=== PATIENT | male | born 1970 | race Caucasian/White ===

== ENCOUNTER 2020-06-15 08:52 | Outpatient (CLI) | payer OTHER, SELFPAY ==
[2020-06-15 09:12] LABS: Basophils Absolute Auto 0.1 K/mm3 (0.0-0.1); Basophils Percent Auto 0.7 % (0.2-1.2); Eosinophils Absolute Auto 0.5 K/mm3 (0-0.3); Eosinophils Percent Auto 6.8 % (0-4.4); Hematocrit 39.7 % (42.0-52.0); Hemoglobin 13.9 g/dL (14.0-18.0); Immature Granulocyte Absolute 0.03 K/mm3 (0.00-0.031); Immature Granulocyte Percent A 0.4 % (0-0.5); Lymphocytes Absolute Auto 1.17 K/mm3 (0.9-3.2); Lymphocytes Percent Auto 16.2 % (18.3-44.2); Mean Corpuscular Hemoglobin 31.7 pg (26-34); Mean Corpuscular Volume 90.6 fl (80-100); Monocytes Absolute Auto 0.6 K/mm3 (0.1-0.6); Monocytes Percent Auto 7.9 % (2.6-8.5); Neutrophils Absolute Auto 4.9 K/mm3 (1.3-6.7); Platelet Count Result 198 k/mm3 (150-375); Red Blood Count 4.38 M/mm3 (4.6-6.20); Red Cell Distribution Width 11.7 % (11.5-14.5); White Blood Count 7.2 K/mm3 (4.5-10.0)
[2020-06-15 09:25] LABS: Alanine Aminotransferase 37 U/L (4-50); Albumin Level 4.1 g/dL (3.5-5.1); Alkaline Phosphatase 65 U/L (38-126); Anion Gap 6 mmol/L (8-16); Aspartate Amino Transferase 37 U/L (17-59); Bilirubin,Total 0.5 mg/dL (0.2-1.3); Blood Urea Nitrogen 19 mg/dL (9-20); Calcium 9.2 mg/dL (8.4-10.2); Carbon Dioxide 27 mmol/L (22-30); Chloride 102 mmol/L (98-107); Cholesterol 313 mg/dL (0-200); Estimated Glomerular Filt Rate > 60; Glucose 107 mg/dL (75-110); HDL Direct 58 mg/dL; Potassium 4.2 mmol/L (3.4-5.0); Sodium 135 mmol/L (137-145); Triglycerides 444 mg/dL (<150)
[2020-06-15 09:36] LABS: LDL Cholesterol Direct 156 mg/dL
== END 2020-06-15 08:53 | disposition home or self-care (01) ==
PROVIDERS: PCP Internal Medicine; Visit Provider Nurse Practitioner
DX: Z13.220 Encounter for screening for lipoid disorders (principal); Z13.228 Encounter for screening for other metabolic disorders; I10 Essential (primary) hypertension
CPT/HCPCS: 36415; 80053; 80061; 85025

== ENCOUNTER 2020-07-04 20:07 | Emergency (ER) | payer OTHER, SELFPAY ==
--- NOTE | ~2020-07-04 | XR_ITS ---
EXAMINATION: XR chest 1V portable INDICATION: Cough and fever TECHNIQUE: Portable AP chest at 2102 hours COMPARISON: None available FINDINGS: Patchy bibasilar airspace opacities are present. There is no pleural effusion or pneumothor ax. The cardiomediastinal silhouette is normal. IMPRESSION: 1. Patchy bibasilar airspace opacities, consistent with atelectasis versus pneumonia. Reviewed, dictated and finalized at location A. LA TENDER HELPER IMPRESSION: 1. Patchy bibasilar airspace opacities, consistent with atelectasis versus pneu monia.
[2020-07-04 20:15] VITALS: BP 140/81; PULSE 113; RESP 18; TEMP 38.8; O2SAT 95
--- NOTE | 2020-07-04 21:42 | ED.FEVER ---
HPI - Fever General Chief Complaint: Fever Stated Complaint: Fever-shortness of breath Time Seen by Provider: 07/04/20 20:45 History of Present Illness HPI Narrative: Patient is a 49-year-old gentleman who presents the emergency department with chief complaint of fever chills body aches and cough. Patient reports that symptoms started today states it hit him all of a sudden. The patient states that he has history of asthma and has felt as though he has had a little bit more wheezing than normal. The patient states that he is unsure if he had any Covid exposure but has been wearing a mask. Patient has not been previously tested for Covid. Related Data Home Medications Medication Instructions Recorded Confirmed amlodipine 10 mg PO DAILY 07/04/20 Allergies Allergy/AdvReac Type Severity Reaction Status Date / Time No Known Allergies Allergy Unverified 07/04/20 20:09 Review of Systems Review of Systems: Narrative: A 10 system review of systems was completed on the patient and is negative except for what is stated in the HPI. Nursing and ancillary documentation was reviewed. PMFSH Past Medical History Medical History Anxiety and depression Asthma Body mass index (bmi) 31.0-31.9, adult Chronic fatigue Class 1 obesity without serious comorbidity with body mass index (BMI) of 30.0 to 30.9 in adult Depression Essential hypertension Gastroesophageal reflux disease Hypertension Hypogonadism in male Low testosterone Surgical History Surgical History H/O shoulder surgery left Family History Family History Father Family history of cardiovascular disease Sibling Family history of cardiovascular disease Sibling Cancer Social History Social History Smoking status: Light tobacco smoker Tobacco type: cigarettes Alcohol intake: current Exam Narrative: Exam Narrative: GENERAL: Well-appearing, well-nourished, and in no acute distress. HEAD: Normocephalic, atraumatic. EYES: PERRLA and EOMI. ENT: Nares clear, no rhinorrhea or epistaxis. Mucous membranes moist. NECK: Supple. CHEST: Clear to auscultation. No respiratory distress. HEART: Regular rate and rhythm. No murmur heard. Normal peripheral pulses. ABDOMEN: Soft, nontender, nondistended, normal active bowel sounds. EXTREMITIES: Normal range of motion. No edema. SKIN: Warm, dry, no rash. NEURO: No focal deficits. Alert and oriented x3. PSYCH: Normal mood and affect. Course Course Emergency Course: Chest x-ray shows possible infiltrates that are either atelectasis versus pneumonia. The patient's influenza was negative the patient will be started on oral antibiotics until his Covid test comes back. Vital Signs Vital signs: Vital Signs Temperature 38.8 C H 07/04/20 20:15 Pulse Rate 113 H 07/04/20 20:15 Respiratory Rate 18 07/04/20 20:15 Blood Pressure 140/81 07/04/20 20:15 Pulse Oximetry 95 07/04/20 20:15 Temperature 38.8 C H 07/04/20 20:15 Pulse Rate 113 H 07/04/20 20:15 Respiratory Rate 18 07/04/20 20:15 Blood Pressure 140/81 07/04/20 20:15 Pulse Oximetry 95 07/04/20 20:15 MDM - Fever Lab Data Labs: Lab Results 07/04/20 Range/Units 20:58 SARS-CoV-2 RNA (RT-PCR) Pending Influenza A Screen Negative Reference Range: Negative Influenza B Screen Negative Reference Range: Negative Discharge Plan Discharge Clinical Impression: Acute viral syndrome Pneumonia Qualifiers: Pneumonia type: due to unspecified organism Laterality: unspecified laterality Lung location: unspecified part of lung Qualified Code(s): J18.9 - Pneum
[2020-07-04 21:59] VITALS: BP 137/82; PULSE 87; RESP 20; O2SAT 99
[2020-07-05 17:56] LABS: SARS-CoV-2 RNA PCR Positive
== END 2020-07-04 22:02 | disposition home or self-care (01) ==
PROVIDERS: Emergency Provider Emergency Medicine; PCP Internal Medicine
DX: U07.1 COVID-19 (principal); J12.89 Other viral pneumonia; F41.9 Anxiety disorder, unspecified; F32.9 Major depressive disorder, single episode, unspecified; I10 Essential (primary) hypertension; K21.9 Gastro-esophageal reflux disease without esophagitis
CPT/HCPCS: 71045; 87635; 87804; 99283; C9803; U0003

== ENCOUNTER → 2021-03-05 09:45 | Outpatient (CLI) | payer OTHER, SELFPAY ==
[2021-03-05 19:54] LABS: SARS-CoV-2 RNA PCR Negative
== END ==
PROVIDERS: PCP Internal Medicine; Visit Provider Nurse Practitioner
DX: R05 Cough (principal); Z20.822 Contact with and (suspected) exposure to COVID-19
CPT/HCPCS: C9803; U0003; U0005

== ENCOUNTER 2021-05-17 08:16 | Outpatient (CLI) | payer OTHER, SELFPAY ==
--- NOTE | ~2021-05-17 | XR_ITS ---
EXAMINATION: XR lumbar spine 2-3V DATE: 05/17/2021 10:40 INDICATION: Low back pain TECHNIQUE: Anteroposterior and lateral views of the lumbar spine, and cone-down lateral view of the l umbosacral junction were obtained. COMPARISON: None. FINDINGS: There are 5 mm of retrolisthesis of L5 on S1. Bone alignment is otherwise normal. There is no fracture. There is moderate loss of intervertebral disc space height at L4-5. Small degenerative o steophytes project from the anterior endplates of multiple vertebral bodies. Calcified atherosclerosi s is noted. IMPRESSION: 1. Mild/moderate lumbar spondylosis without acute findings. Reviewed, dictated and finalized at location B. APPLYING MACHINE TENDER
[2021-05-17 08:39] LABS: Basophils Percent Auto 0.4 % (0.2-1.2); Eosinophils Percent Auto 0.3 % (0-4.4); Hematocrit 40.5 % (42.0-52.0); Immature Granulocyte Absolute 0.08 K/mm3 (0.00-0.031); Immature Granulocyte Percent A 0.7 % (0-0.5); Lymphocytes Absolute Auto 1.03 K/mm3 (0.9-3.2); Lymphocytes Percent Auto 9.4 % (18.3-44.2); Mean Corpuscular HGB Conc 34.6 g/dl (32-36); Mean Corpuscular Hemoglobin 31.5 pg (26-34); Mean Platelet Volume 9.6 fl (7.4-10.4); Monocytes Absolute Auto 0.6 K/mm3 (0.1-0.6); Monocytes Percent Auto 5.3 % (2.6-8.5); Neutrophils Absolute Auto 9.2 K/mm3 (1.3-6.7); Neutrophils Percent Auto 83.9 % (45.5-73.1); Platelet Count Result 248 k/mm3 (150-375); Red Blood Count 4.45 M/mm3 (4.6-6.20); Red Cell Distribution Width 11.5 % (11.5-14.5); White Blood Count 10.9 K/mm3 (4.5-10.0)
[2021-05-17 08:50] LABS: Alanine Aminotransferase 40 U/L (4-50); Albumin Level 4.8 g/dL (3.5-5.1); Alkaline Phosphatase 59 U/L (38-126); Anion Gap 11 mmol/L (8-16); Aspartate Amino Transferase 36 U/L (17-59); Bilirubin,Total 0.4 mg/dL (0.2-1.3); Blood Urea Nitrogen 18 mg/dL (9-20); Carbon Dioxide 26 mmol/L (22-30); Chloride 100 mmol/L (98-107); Cholesterol 242 mg/dL (0-200); Estimated Glomerular Filt Rate > 60; Glucose 125 mg/dL (65-110); HDL Direct 78 mg/dL; Potassium 4.4 mmol/L (3.4-5.0); Sodium 137 mmol/L (137-145); Triglycerides 149 mg/dL (<150)
[2021-05-17 09:02] LABS: LDL Cholesterol Direct 118 mg/dL
[2021-05-17 09:22] LABS: Prostate Specific Antigen 0.8 ng/mL (< OR = 4.0)
== END 2021-05-17 08:17 | disposition home or self-care (01) ==
LOC: ANHLAB 08:18
PROVIDERS: PCP Internal Medicine; Visit Provider Clinical Nurse Specialist
DX: Z12.5 Encounter for screening for malignant neoplasm of prostate (principal); M47.816 Spondylosis without myelopathy or radiculopathy, lumbar region; D64.9 Anemia, unspecified; I10 Essential (primary) hypertension; E78.2 Mixed hyperlipidemia
CPT/HCPCS: 36415; 72100; 80053; 80061; 84153; 84443; 85025; G0103

== ENCOUNTER 2021-05-24 08:02 | Outpatient (CLI) | payer OTHER, SELFPAY ==
--- NOTE | ~2021-05-24 | CT_ITS ---
EXAMINATION: CT abdomen pelvis w con DATE: 05/24/2021 08:41 INDICATION: Lower abdominal intermittent pain after urination for one year. Blood in stool. TECHNIQUE: Computed tomography (CT) of the abdomen and pelvis was performed with 100 cc Omnipaque 350 intravenous contrast. Automated exposure control and iterative reconstruction technique were employe d. Exam dose: 744.96 mGy-cm total exam DLP. COMPARISON: None. FINDINGS: The lung bases are clear. Normal heart size. No pericardial or pleural effusion. The liver, gallbladder, bile ducts, spleen, pancreas, pancreatic duct, and adrenal glands and kidneys appear normal. No urinary tract calculus or hydroureteronephrosis. There is moderate thickening of the urinary bladder wall; this may be due to moderate prostate enlarg ement. Cystitis is not excluded. There are prostate calcifications. There is atherosclerotic calcification of the abdominal aorta but no aneurysm. No intraperitoneal or retroperitoneal or pelvic mass lesion or adenopathy or ascites. Normal appendix. No bowel obstruction, bowel wall thickening, pneumatosis or intraperitoneal free air . Prominent degenerative spurring of the lower thoracic spine. Moderate degenerative disc disease at L4-5. No suspicious osteolytic or osteoblastic lesions are note d. Bilateral hip osteoarthritis. IMPRESSION: Prostate enlargement and calcification and associated moderate thickening of the urinary bladder wall; cystitis is not excluded Normal appendix Reviewed, dictated and finalized at Location A. Reviewed, dictated and finalized at location A. RESSION MOLDING MACHINE TENDER IMPRESSION: Prostate enlargement and calcification and associated moderate thi ckening of the urinary bladder wall; cystitis is not excluded Normal appendix
== END 2021-05-24 08:03 | disposition home or self-care (01) ==
PROVIDERS: PCP Internal Medicine; Visit Provider Clinical Nurse Specialist
DX: R10.9 Unspecified abdominal pain (principal); N40.0 Benign prostatic hyperplasia without lower urinary tract symptoms; R93.89 Abnormal findings on diagnostic imaging of other specified body structures
CPT/HCPCS: 74177; Q9967

== ENCOUNTER 2021-07-05 11:32 | Outpatient (CLI) | payer OTHER, SELFPAY ==
[2021-07-05 11:57] LABS: Basophils Absolute Auto 0.1 K/mm3 (0.0-0.1); Basophils Percent Auto 0.9 % (0.2-1.2); Eosinophils Absolute Auto 0.3 K/mm3 (0-0.3); Eosinophils Percent Auto 4.2 % (0-4.4); Hematocrit 40.5 % (42.0-52.0); Hemoglobin 14.1 g/dL (14.0-18.0); Immature Granulocyte Absolute 0.02 K/mm3 (0.00-0.031); Immature Granulocyte Percent A 0.3 % (0-0.5); Lymphocytes Percent Auto 19.2 % (18.3-44.2); Mean Corpuscular HGB Conc 34.8 g/dl (32-36); Mean Platelet Volume 9.3 fl (7.4-10.4); Monocytes Absolute Auto 0.6 K/mm3 (0.1-0.6); Monocytes Percent Auto 8.2 % (2.6-8.5); Neutrophils Absolute Auto 5.2 K/mm3 (1.3-6.7); Neutrophils Percent Auto 67.2 % (45.5-73.1); Platelet Count Result 244 k/mm3 (150-375); Red Cell Distribution Width 12.3 % (11.5-14.5); White Blood Count 7.8 K/mm3 (4.5-10.0)
[2021-07-05 12:04] LABS: Hemoglobin A1C 5.1 % (<5.7)
== END 2021-07-05 11:33 | disposition home or self-care (01) ==
LOC: ANHLAB 11:33
PROVIDERS: PCP Internal Medicine; Visit Provider Clinical Nurse Specialist
DX: D72.829 Elevated white blood cell count, unspecified (principal); R73.09 Other abnormal glucose
CPT/HCPCS: 36415; 83036; 85025

== ENCOUNTER 2021-07-19 00:04 | Day surgery (SDC) | payer OTHER, SELFPAY ==
[2021-07-03 14:40] VITALS: BMI 29.6
--- NOTE | 2021-07-19 07:00 | WPDANESEPPF ---
Anes - Initial Pre Proc Eval Procedure: Operation Date: 07/19/21 10:00 Proposed Procedures p Colonoscopy - Kyrie Mujica MD Date/Time: 07/19/21 07:00 Surgeon: Kyrie Mujica MD Pre Op Diagnosis: melena Patient Data Age: 51 Gender: M Height: 1.75 m Weight: 91 kg Allergies Allergy/AdvReac Type Severity Reaction Status Date / Time No Known Allergies Allergy Verified 07/19/21 08:53 Home Medications Medication Instructions Recorded Confirmed Type atorvastatin 10 mg tablet 10 mg PO DAILY #90 tablet 07/24/20 07/19/21 Rx omeprazole 40 mg capsule,delayed 40 mg PO DAILY #90 cap 12/10/20 07/19/21 Rx release albuterol sulfate 90 mcg/actuation 2 puff INHALATION Q4-6H PRN #18 g 12/17/20 07/19/21 Rx aerosol inhaler amlodipine 10 mg tablet 10 mg PO DAILY #90 tablet 03/12/21 07/19/21 Rx lisinopril 40 mg tablet 40 mg PO DAILY #90 tablet 04/25/21 07/19/21 Rx azelastine 137 mcg (0.1 %) nasal 137 mcg INTRANASAL Q12H #30 ml 05/15/21 07/19/21 Rx spray aerosol fluticasone propionate 50 1 spray INTRANASAL Q12H #16 g 05/15/21 07/19/21 Rx mcg/actuation nasal spray,suspension hydrochlorothiazide 12.5 mg tablet 12.5 mg PO DAILY #90 tablet 06/12/21 07/19/21 Rx sertraline 100 mg tablet 150 mg PO DAILY #135 tablet 06/12/21 07/19/21 Rx Patient hx anesthesia problems: none Family hx anesthesia problems: none Results Review: All pre-operative results and documents have been reviewed as part of the pre-operative evaluation. [facility] Past Medical History Medical History Anxiety and depression Asthma Body mass index (bmi) 31.0-31.9, adult Chronic fatigue Class 1 obesity without serious comorbidity with body mass index (BMI) of 30.0 to 30.9 in adult Depression Essential hypertension Gastroesophageal reflux disease Hyperlipidemia Hypertension Hypogonadism in male Low testosterone SHAYNA (obstructive sleep apnea) Surgical History Surgical History H/O shoulder surgery left Family History Family History Father Family history of cardiovascular disease Sibling Family history of cardiovascular disease Sibling Cancer Social History Social History Smoking status: Former smoker Tobacco type: cigars Alcohol intake: current Drinks per week: 10 Alcohol use details: Pt drinks socially. Substance use: never Substance use type: does not use Living arrangements: with family Spiritual care concerns: No Anes - Eval Final PreProcedure Day of Procedure 07/19/21 07:00 Patient weight: overweight Heart: regular rate and rhythm Lungs: clear to auscultation and normal air movement Airway: Mallampati scale class II Neurological: alert and oriented Last oral intake: >/= 8 hours ASA classification: III Emergent: no Anesthetic plan: proceed Anesthesia type and monitoring: general GIVS and standard monitoring Results Review: All pre-operative results and documents have been reviewed as part of the pre-operative evaluation. Informed Consent: The patient's anesthetic plan and its attendant risks and benefits were discussed with the patient/family/POA. Questions were solicited and answers provided to the satisfaction of the patient/family/POA.
[2021-07-19] MEDS: LACTATED RINGERS 1,000 ML 150 ML IV CONT (09:01)
[2021-07-19 09:02] VITALS: BP 152/103; PULSE 97; RESP 17; TEMP 36.3; O2SAT 97; BMI 29.2
--- NOTE | 2021-07-19 09:21 | PM.HPGS ---
History of Present Illness History of Present Illness Consent: Risks, benefits, and alternatives have been discussed and questions answered. Patient agrees to proceed with procedure. Chief complaint: melena Narrative: Peña Anderson is a 51 year old male with intermittent rectal bleeding and colon polyp 2015 Review of Systems Constitutional: Constitutional: Denies headache(s) and Denies weakness Eyes: Eyes: Denies blurry vision ENT: Reports Normal hearing present, Denies headache(s) and Denies neck pain Cardiovascular: Cardiovascular: Denies chest pain and Denies dyspnea Respiratory: Respiratory: Denies dyspnea Gastrointestinal: Gastrointestinal: Reports no additional gastrointestinal complaints Genitourinary: Genitourinary: Denies dysuria Musculoskeletal: Musculoskeletal: Denies neck pain Integumentary/Breasts: Skin/Breast: Denies dry skin Neurologic: Reports Normal hearing present, Denies headache(s) and Denies weakness Psychiatric: Psychiatric: Denies anxiety Endocrine: Endocrine: Denies change in body appearance Hematologic/Lymphatic: Hematologic/Lymphatic: Denies easy bleeding Allergic/Immunologic: Allergic/Immunologic: Denies urticaria PMFSH Past Medical History Medical History (Updated 07/19/21 @ 09:21 by Kyrie Mujica MD) Anxiety and depression Asthma Blood in stool Body mass index (bmi) 31.0-31.9, adult Chronic fatigue Class 1 obesity without serious comorbidity with body mass index (BMI) of 30.0 to 30.9 in adult Depression Essential hypertension Gastroesophageal reflux disease Hyperlipidemia Hypertension Hypogonadism in male Low testosterone SHAYNA (obstructive sleep apnea) Surgical History Surgical History H/O shoulder surgery left Family History Family History Father Family history of cardiovascular disease Sibling Family history of cardiovascular disease Sibling Cancer Social History Social History Smoking status: Former smoker Tobacco type: cigars Alcohol intake: current Drinks per week: 10 Alcohol use details: Pt drinks socially. Substance use: never Substance use type: does not use Living arrangements: with family Spiritual care concerns: No Meds Home Medications and Allergies Home Medications Medication Instructions Recorded Confirmed Type atorvastatin 10 mg tablet 10 mg PO DAILY #90 tablet 07/24/20 07/19/21 Rx omeprazole 40 mg capsule,delayed 40 mg PO DAILY #90 cap 12/10/20 07/19/21 Rx release albuterol sulfate 90 mcg/actuation 2 puff INHALATION Q4-6H PRN #18 g 12/17/20 07/19/21 Rx aerosol inhaler amlodipine 10 mg tablet 10 mg PO DAILY #90 tablet 03/12/21 07/19/21 Rx lisinopril 40 mg tablet 40 mg PO DAILY #90 tablet 04/25/21 07/19/21 Rx azelastine 137 mcg (0.1 %) nasal 137 mcg INTRANASAL Q12H #30 ml 05/15/21 07/19/21 Rx spray aerosol fluticasone propionate 50 1 spray INTRANASAL Q12H #16 g 05/15/21 07/19/21 Rx mcg/actuation nasal spray,suspension hydrochlorothiazide 12.5 mg tablet 12.5 mg PO DAILY #90 tablet 06/12/21 07/19/21 Rx sertraline 100 mg tablet 150 mg PO DAILY #135 tablet 06/12/21 07/19/21 Rx Allergies Allergy/AdvReac Type Severity Reaction Status Date / Time No Known Allergies Allergy Verified 07/19/21 08:53 Vital Signs Vital Signs - 24 hr 07/19/21 09:02 Temperature 97.3 F L Pulse Rate 97 Respiratory Rate 17 Blood Pressure 152/103 H Pulse Oximetry 97 Exam Const: General: comfortable and no acute distress HENMT: General nose exam: Normal nares present Eyes: General: appearance normal, both eyes and all related structures Neck: Neck: no JVD Resp: Auscultation: clear to auscultation bilaterally Cardio: Rate: regular rate Rhythm: regular rhythm GI: Inspection: non-distended GI Palp: Yes Soft to pa
[2021-07-19 09:46] VITALS: BP 114/86; PULSE 87; RESP 16; O2SAT 99
[2021-07-19 09:56] VITALS: BP 143/103; PULSE 82; RESP 16; O2SAT 100
[2021-07-19 10:06] VITALS: BP 152/106; PULSE 76; RESP 18; O2SAT 100
== END 2021-07-19 10:18 | disposition home or self-care (01) ==
PROVIDERS: PCP Internal Medicine; Visit Provider Internal Medicine Gastroenterology
PROC: 0DJD8ZZ Inspection of Lower Intestinal Tract, Via Natural or Artificial Opening Endoscopic (ICD-10-PCS; CPT 45378; principal; 2021-07-19 10:00)
DX: K92.1 Melena (principal); D12.3 Benign neoplasm of transverse colon; K64.8 Other hemorrhoids; F41.8 Other specified anxiety disorders; I10 Essential (primary) hypertension; K21.9 Gastro-esophageal reflux disease without esophagitis; G47.33 Obstructive sleep apnea (adult) (pediatric); E78.5 Hyperlipidemia, unspecified; Z87.891 Personal history of nicotine dependence; Z79.51 Long term (current) use of inhaled steroids
CPT/HCPCS: 45380; 88305; J2704; J7120

== ENCOUNTER 2021-08-12 15:08 | Emergency (ER) | payer OTHER, SELFPAY ==
--- NOTE | ~2021-08-12 | XR_ITS ---
EXAMINATION: XR shoulder RT min 2V EXAM DATE: 08/12/2021 15:36 INDICATION: Fell Backwards On Object 08/11/21. LROM Since. TECHNIQUE: The following right shoulder projections obtained: frontal projection with internal rotati on, frontal projection with external rotation, Grashey, and scapular Y view (4+ views). There is no prior study for comparison. 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 Mild to moderate right shoulder oste oarthritis. There are no acute fractures or dislocations identified. There is no subcutaneous gas. The soft tissue is unremarkable. There are no radiopaque foreign bodies. 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 Mild to moderate osteoarthritis. Reviewed, dictated and finalized at location B. 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 Mild to moder ate osteoarthritis.
[2021-08-12 15:14] VITALS: BP 150/85; PULSE 100; RESP 20; TEMP 37.3; O2SAT 98
[2021-08-12 15:22] VITALS: BP 150/85; PULSE 100; RESP 20; TEMP 37.3; O2SAT 98
--- NOTE | 2021-08-12 15:30 | ED.UPPEXIN ---
HPI - Extremity Injury (Upper) General Chief Complaint: Extremity Injury, Upper Stated Complaint: Fall Injury/Right Shoulder History of Present Illness HPI narrative: patinela presents with right shoulder pain. patient states he fell last night landing on a rock. today he has pain with movementto shoulder. no deformity. no open areas noted. patient took ibuprofen prior to arrival. MD complaint: injury to: right and shoulder Related Data Allergies Allergy/AdvReac Type Severity Reaction Status Date / Time No Known Allergies Allergy Verified 07/19/21 08:53 Review of Systems Review of Systems: CONSTITUTIONAL: Denies fever, chills, or sweats. EYES: Denies visual changes, redness, or discharge. ENT: Denies rhinorrhea, congestion, sore throat, or otalgia. CARDIOVASCULAR: Denies chest pain, palpitations, or edema. RESPIRATORY: Denies cough or dyspnea. GASTROINTESTINAL: Denies abdominal pain, nausea, vomiting, or diarrhea. GENITOURINARY: Denies dysuria or hematuria. SKIN: Denies rash or itching. MUSCULOSKELETAL: Denies back pain, joint pain, or myalgia. NEUROLOGIC: Denies headache, numbness, or weakness. PSYCHIATRIC: Denies anxiety or depression. [facility] Past Medical History Medical History (Updated 08/12/21 @ 16:01 by ANETTE Obrien) Anxiety and depression Asthma Blood in stool Body mass index (bmi) 31.0-31.9, adult Chronic fatigue Class 1 obesity without serious comorbidity with body mass index (BMI) of 30.0 to 30.9 in adult Depression Essential hypertension Gastroesophageal reflux disease Hyperlipidemia Hypertension Hypogonadism in male Low testosterone SHAYNA (obstructive sleep apnea) Surgical History Surgical History H/O shoulder surgery left Family History Family History Father Family history of cardiovascular disease Sibling Family history of cardiovascular disease Sibling Cancer Social History Social History Smoking status: Former smoker Tobacco type: cigars Alcohol intake: current Drinks per week: 10 Alcohol use details: Pt drinks socially. Substance use: never Substance use type: does not use Spiritual care concerns: No Comments At time of signature, agree with nursing past medical, surgical, social and family history. There is no relevant family history pertinent to the presenting complaint Exam Narrative: GENERAL: Well-appearing, well-nourished, and in no acute distress. HEAD: Normocephalic, atraumatic. EYES: PERRLA and EOMI. ENT: Nares clear, no rhinorrhea or epistaxis. Mucous membranes moist. NECK: Supple. CHEST: Clear to auscultation. No respiratory distress. HEART: Regular rate and rhythm. No murmur heard. Normal peripheral pulses. ABDOMEN: Soft, nontender, nondistended, normal active bowel sounds. EXTREMITIES: Normal range of motion. No edema. NO SWELLING, BRUISING, SKIN CHANGES. SKIN INTACT. NORMAL RADIAL PULSE. NO DEFORMITY OF SHOULDER. NO CLAVICLE TENDERNESS. NORMAL UE SENSATION AND STRENGTH. ROM EVALUATED - CAN RAISE UE ABOVE SHOULDER, CAN ABDUCT, ADDUCT, EXTERNALLY ROTATE AND CAN INTERNALLY ROTATE AND RAISE THUMB UP THE SPINE. NO AC JOINT TENDERNESS, CAN CROSS ARM HORIZONTALLY AND PLACE HAND ON OPPOSITE SHOULDER, NO WINGING OF THE SCAPULA. SUPRASPINATUS APPEARS NORMAL WITH ARMS STRAIGHT OUT AT 30 DEGREES, THUMB DOWN , CAN ABDUCT AGAINST RESISTANCE. pain with rom SKIN: Warm, dry, no rash. NEURO: No focal deficits. Alert and oriented x3. Jose F Coma Scale Eye Opening: Spontaneous 4 Jose F Coma Scale Motor: Obeys Commands 6 Jose F Coma Scale Verbal: Oriented 5 Jose F Coma Scale Total 15 Course Course Level of Care: Express Care Visit Vital Signs Vital signs: Vital Signs Temperature 37.3 C 08/12/21 15:14 Pulse Rate 100 08/12/21 15:14 Respiratory Rate 20 08/12/21 15:14 Blood
[2021-08-12] MEDS: KETOROLAC (*BKC) 60 MG/2 ML VIAL IM (16:00)
== END 2021-08-12 16:23 | disposition home or self-care (01) ==
PROVIDERS: Emergency Provider Nurse Practitioner Family; PCP Internal Medicine
DX: S40.011A Contusion of right shoulder, initial encounter (principal); W19.XXXA Unspecified fall, initial encounter; M19.011 Primary osteoarthritis, right shoulder; I10 Essential (primary) hypertension; K21.9 Gastro-esophageal reflux disease without esophagitis; E78.5 Hyperlipidemia, unspecified; G47.33 Obstructive sleep apnea (adult) (pediatric); F41.9 Anxiety disorder, unspecified; F32.A Depression, unspecified
CPT/HCPCS: 73030; 96372; 99213; G0463; J1885

== ENCOUNTER 2022-10-13 09:11 | Outpatient (CLI) | payer OTHER, SELFPAY ==
[2022-10-13 19:29] LABS: Basophils Absolute Auto 0.1 K/mm3 (0.0-0.1); Basophils Percent Auto 1.1 % (0.2-1.2); Eosinophils Absolute Auto 0.8 K/mm3 (0-0.3); Eosinophils Percent Auto 9.6 % (0-4.4); Hematocrit 39.8 % (42.0-52.0); Hemoglobin 13.2 g/dL (14.0-18.0); Immature Granulocyte Absolute 0.02 K/mm3 (0.00-0.031); Immature Granulocyte Percent A 0.2 % (0-0.5); Lymphocytes Absolute Auto 1.33 K/mm3 (0.9-3.2); Lymphocytes Percent Auto 16.6 % (18.3-44.2); Mean Corpuscular HGB Conc 33.2 g/dl (32-36); Mean Corpuscular Hemoglobin 30.8 pg (26-34); Mean Corpuscular Volume 92.8 fl (80-100); Mean Platelet Volume 9.9 fl (7.4-10.4); Monocytes Absolute Auto 0.6 K/mm3 (0.1-0.6); Monocytes Percent Auto 7.6 % (2.6-8.5); Neutrophils Absolute Auto 5.2 K/mm3 (1.3-6.7); Neutrophils Percent Auto 64.9 % (45.5-73.1); Platelet Count Result 224 k/mm3 (150-375); Red Blood Count 4.29 M/mm3 (4.6-6.20); Red Cell Distribution Width 12.3 % (11.5-14.5)
[2022-10-13 20:27] LABS: LDL Cholesterol Direct 93 mg/dL
[2022-10-13 20:28] LABS: Alanine Aminotransferase 37 U/L (6-50); Albumin Level 4.2 g/dL (3.5-5.1); Alkaline Phosphatase 72 U/L (38-126); Anion Gap 5 mmol/L (8-16); Aspartate Amino Transferase 41 U/L (17-59); Bilirubin,Total 0.5 mg/dL (0.2-1.3); Blood Urea Nitrogen 16 mg/dL (9-20); Calcium 8.7 mg/dL (8.4-10.2); Carbon Dioxide 30 mmol/L (22-30); Chloride 98 mmol/L (98-107); Cholesterol 260 mg/dL (0-200); Estimated Glomerular Filt Rate > 60; Glucose 108 mg/dL (65-110); HDL Direct 52 mg/dL; Potassium 4.1 mmol/L (3.4-5.0); Sodium 133 mmol/L (137-145)
[2022-10-13 20:45] LABS: Prostate Specific Antigen 0.8 ng/mL (< OR = 4.0)
[2022-10-13 21:19] LABS: Triglycerides 598 mg/dL (<150)
[2022-10-14 13:35] LABS: Folic Acid 11.9 ng/mL (2.76->20)
== END 2022-10-13 09:12 | disposition home or self-care (01) ==
LOC: ANHGOSHLAB 09:13
PROVIDERS: PCP Internal Medicine; Visit Provider Nurse Practitioner
DX: D64.9 Anemia, unspecified (principal); N40.0 Benign prostatic hyperplasia without lower urinary tract symptoms; E78.5 Hyperlipidemia, unspecified; I10 Essential (primary) hypertension
CPT/HCPCS: 36415; 80053; 80061; 82607; 82746; 84153; 85025

== ENCOUNTER 2023-04-17 11:43 | Outpatient (CLI) | payer OTHER, SELFPAY ==
[2023-04-17 19:42] LABS: Basophils Absolute Auto 0.1 K/mm3 (0.0-0.1); Basophils Percent Auto 0.9 % (0.2-1.2); Eosinophils Absolute Auto 0.7 K/mm3 (0-0.3); Eosinophils Percent Auto 9.9 % (0-4.4); Hemoglobin 13.5 g/dL (14.0-18.0); Immature Granulocyte Absolute 0.02 K/mm3 (0.00-0.031); Immature Granulocyte Percent A 0.3 % (0-0.5); Lymphocytes Percent Auto 20.7 % (18.3-44.2); Mean Corpuscular HGB Conc 32.9 g/dl (32-36); Mean Corpuscular Hemoglobin 31.7 pg (26-34); Mean Corpuscular Volume 96.2 fl (80-100); Mean Platelet Volume 9.8 fl (7.4-10.4); Monocytes Absolute Auto 0.5 K/mm3 (0.1-0.6); Neutrophils Absolute Auto 4.1 K/mm3 (1.3-6.7); Neutrophils Percent Auto 61.2 % (45.5-73.1); Platelet Count Result 220 k/mm3 (150-375); Red Blood Count 4.26 M/mm3 (4.6-6.20); Red Cell Distribution Width 11.9 % (11.5-14.5); White Blood Count 6.8 K/mm3 (4.5-10.0)
[2023-04-17 19:54] LABS: Cholesterol 253 mg/dL (0-200); HDL Direct 62 mg/dL; Triglycerides 118 mg/dL (<150)
[2023-04-17 20:03] LABS: Iron 70 ug/dL (49-181)
[2023-04-17 20:04] LABS: LDL Cholesterol Direct 147 mg/dL
[2023-04-17 20:16] LABS: Percent Iron Saturation 19 % (20-50)
[2023-04-17 20:58] LABS: Folic Acid 13.6 ng/mL (2.76->20)
== END 2023-04-17 11:44 | disposition home or self-care (01) ==
PROVIDERS: PCP Internal Medicine; Visit Provider Nurse Practitioner
DX: E78.2 Mixed hyperlipidemia (principal); D64.9 Anemia, unspecified
CPT/HCPCS: 36415; 80061; 82607; 82728; 82746; 83540; 83550; 85025

== ENCOUNTER 2023-04-17 11:53 | Outpatient (CLI) | payer OTHER, SELFPAY ==
--- NOTE | ~2023-04-17 | XR_ITS ---
Lumbosacral Spine: AP and lateral views Clinical History: Pain Findings: The normal lordotic curve is maintained. The vertebral bodies and posterior elements are i ntact. There is mild degenerative disc narrowing at L4-L5. There is moderate facet arthropathy at L4- L5 and L5-S1.. The sacroiliac joints are normally outlined. Impression: Mild to moderate degenerative spondylosis of the lower lumbar spine, as detailed above. Reviewed, dictated and finalized at location M. Impression: Mild to moderate degenerative spondylosis of the lower lumbar spine, as detaile d above.
== END 2023-04-17 11:54 ==
LOC: GOSHIMG 11:55
PROVIDERS: PCP Nurse Practitioner; Visit Provider Nurse Practitioner
DX: M54.16 Radiculopathy, lumbar region (principal); M43.06 Spondylolysis, lumbar region
CPT/HCPCS: 72100

== ENCOUNTER 2023-05-20 12:30 | Outpatient (RCR) | payer OTHER, SELFPAY ==
--- NOTE | 2023-04-22 15:16 | PTOPEVAL1 ---
Assessment and note entered by Ciara Hernandez, PT, DPT Evaluation Information Assessment Status Evaluation Diagnosis lumbar radiculopathy Onset years, increased recently Subjective Information Pt states he has back pain and when standing on his feet for too long will cause his whole leg to go numb. He states his pain comes and goes. He states most days he can still go to the gym and other days at times it hurts too bad to stand. Reported Pain Level Pain Score 2: Self Report Assessment PT Clinical Summary Peña presents to therapy today for his initial evaluation with a diagnosis of lumbar radiculopathy. Today he demonstrates tightness and tenderness of his R piriformis. he has good strength and LE ROM but has increased pain with passive motion to his R hip and resisted hip motions on the R. He ambulates with a slightly flexed posture. Skilled therapy services are indicated to address the deficits noted above, to manage pain, and to return to PLOF without limitations. Plan of Care Interventions Electrical Stimulation,Gait Training,Hot Pack/Cold Pack,Manual Therapy,Neuro Re-education,Patient/ Caregiver Educati,Therapeutic Activities, Therapeutic Exercise PT Services Indicated Yes Treatment Frequency and 1x/wk for 4 visits Duration These treatments will address the objective and functional deficits as defined above. The patient will be advanced safely and appropriately in order for the patient to progress towards his/her prior level of function. Additional exercises will be introduced and as well as a comprehensive home exercise program upon discharge, if needed, ?to ensure carryover of functional gains achieved in the clinic. This treatment plan has been reviewed and agreement upon by the patient.
--- NOTE | 2023-04-22 15:16 | OPREHPOC ---
Outpatient Therapy Plan of Care This is a Multidisciplinary Plan of Care that may contain components documented by all disciplines (PT, OT, and ST.) PT Problem 1 PT Problem #1 Knowledge Deficit PT Goal 1 Goal Pt to be IND with issued HEP Target Visit 4 PT Problem 2 PT Problem #2 Pain PT Goal 1 Goal Pt to report pain no greater than 3/10 in the last week. Target Visit 4 PT Goal 2 Goal Pt to report 75% improvement in overall symptoms. Target Visit 4 PT Problem 3 PT Problem #3 Impaired Sensation PT Goal 1 Goal Pt to decline radicular symptoms in the last week . Target Visit 4 PT Problem 4 PT Problem #4 Pain PT Goal 1 Goal Pt to report no increase in pain with resisted R hip motions Target Visit 4 PT Problem 5 PT Problem #5 Impaired Functional Mobil PT Goal 1 Goal Pt to demonstrate 30lb box lift without substitutions and without compensation to simulate his work environment. Target Visit 4
--- NOTE | 2023-05-20 13:40 | PTOPPROG ---
Assessment and note entered by Ciara Hernandez, PT, DPT Evaluation Information Assessment Status Progress Diagnosis lumbar radiculopathy Onset years, increased recently Subjective Information Pt states his back pain is not being him as much today, he states taking 3 days off work has really helped with his back pain. He states he feels like his back is slowly better with therapy. Assessment PT Clinical Summary Peña presents to therapy today for his progress report following 4 visits of skilled therapy to treat his diagnosis of lumbar radiculopathy. Today he demonstrates improved LE ROM and mobility. He is starting to become more aware of his posture and body mechanics with functional movements but still needs intermittent cueing. He states he would like to continue working on things on his own and will follow up in about a month if needed. Plan of Care Interventions Electrical Stimulation,Gait Training,Hot Pack/Cold Pack,Manual Therapy,Neuro Re-education,Patient/ Caregiver Educati,Therapeutic Activities, Therapeutic Exercise PT Services Indicated Yes Treatment Frequency and follow up if needed Duration These treatments will address the objective and functional deficits as defined above. The patient will be advanced safely and appropriately in order for the patient to progress towards his/her prior level of function. Additional exercises will be introduced and as well as a comprehensive home exercise program upon discharge, if needed, ?to ensure carryover of functional gains achieved in the clinic. This treatment plan has been reviewed and agreement upon by the patient.
--- NOTE | 2023-06-17 09:46 | PTOPDC ---
Assessment and note entered by Ciara Hernandez, PT, DPT Evaluation Information Assessment Status Discharge - Pt Not Present Diagnosis lumbar radiculopathy Onset years, increased recently Subjective Information Called and spoke with pt. States he continues to do his HEP and is still doing well. States he can be discharged at this time. Assessment PT Clinical Summary Peña completed 4 visits of skilled therapy from to 05/20/23. He will be discharged at this time.
== END 2023-06-17 11:51 | disposition home or self-care (01) ==
LOC: ANHGOSHPT 12:30
PROVIDERS: PCP Nurse Practitioner; Visit Provider Nurse Practitioner
DX: M54.16 Radiculopathy, lumbar region (principal)
CPT/HCPCS: 97012; 97110; 97140; 97161; 97530

== ENCOUNTER 2023-08-22 14:41 | Observation (INO) | payer OTHER, SELFPAY ==
--- NOTE | ~2023-08-22 | NM_ITS ---
EXAMINATION: NM manish stress w perfusion DATE: 08/24/2023 13:50 INDICATION: Chest pain TECHNIQUE: Rest images were obtained following intravenous administration of 9.8 mCi Tc99m tetrofosmi n (Myoview). The patient was infused intravenously with Lexiscan (Regadenoson). Then, 31.4 mCi Tc99m tetrofosmin (Myoview) was administered intravenously, and stress images were obtained initially in th e supine position with repeat images obtained in the prone position. Data was reconstructed into shor t axis and horizontal and vertical long axis SPECT images. Gated SPECT images were also obtained. COMPARISON: None. FINDINGS: There is some diaphragmatic attenuation artifact along the inferior wall which normalizes w ith prone imaging. There is no definite reversible or fixed perfusion abnormality to suggest ischemia or infarction. There is normal left ventricular chamber size, wall motion and ejection fraction. L eft ventricular ejection fraction measures 68%. IMPRESSION: 1. Normal myocardial perfusion at rest and during stress. 2. Left ventricular ejection fraction measuring 68%. Reviewed, dictated and finalized at location A. BOILER
--- NOTE | ~2023-08-22 | XR_ITS ---
EXAMINATION: XR chest 2V Exam Date/Time: 08/22/2023 15:56 LEAD TECHNICIAN HISTORY: chest pressure, dizzy, HTN, ASTHMA, LT ARM NUMBNESS, CP Comparison: 07/04/2020. RESULT: Lines, tubes, and devices: None. Lungs and pleura: Clear. Cardiomediastinal silhouette: Stable. Other: No acute osseous or upper abdominal finding. Bilateral distal clavicular osteolysis. IMPRESSION: No acute cardiopulmonary process. Reviewed, dictated and finalized at location K. TECHNICIAN
--- NOTE | ~2023-08-22 | CT_ITS ---
EXAMINATION: CTA brain carotid DATE: 08/23/2023 17:28 INDICATION: dizziness, reported carotid plaque TECHNIQUE: Computed tomographic angiography (CTA) of the head was performed without and with 100 mL O mnipaque-350 intravenous contrast. CTA of the neck was performed with intravenous contrast. The dose- length product was 1758.57 mGy-cm. Maximum intensity projection and volume rendered 3D-reconstruction s were created by the technologist on a separate workstation. COMPARISON: None. FINDINGS: CT BRAIN: No acute large vessel infarct, intracranial hemorrhage, mass, or hydrocephalus. Ethmoid mucosal thick ening. Bilateral axillary sinus mucosal thickening with retention cysts/polyps CTA HEAD: No large vessel occlusion, aneurysm, high flow vascular malformation, nidus or extravasation. Persist ent origin of the left posterior cerebral artery. Hypoplastic/absent left P1 segment. Symmetric proximal enhancement. Patent cerebral veins. CTA NECK: Aortic arch and proximal great vessels: Minimal arch calcification. Normal arch anatomy. Right common carotid, carotid bifurcation, and internal carotid artery: Minimal calcified plaque.Ther e is 0% stenosis of the proximal right internal carotid artery relative to normal distal artery lumen diameter (NASCET criteria). Left common carotid, carotid bifurcation, and internal carotid artery: Minimal calcified plaque.There is 0% stenosis of the proximal left internal carotid artery relative to normal distal artery lumen d iameter (NASCET criteria). Vertebral arteries: No significant plaque or stenosis. Vertebral arteries co-dominant. Other findings: None. IMPRESSION: No acute intracranial process. No large vessel intracranial occlusion, high-grade intracranial stenosis, or aneurysm. No carotid or vertebral artery occlusion, dissection, or significant stenosis. Reviewed, dictated and finalized at location K. OR NET DEVELOPER IMPRESSION: No acute intracranial process. No large vessel intracranial occlusion, high-grade intracranial stenosis, or an eurysm. No carotid or vertebral artery occlusion, dissection, or significant stenosis.
[2023-08-22 15:26] VITALS: BP 161/91; PULSE 70; RESP 18; TEMP 36.4; O2SAT 99
--- NOTE | 2023-08-22 15:31 | ECG_ITS ---
Measurements Intervals [place] Rate: 67 P: 61 TX: 142 QRS: -11 QRSD: 103 T: 49 QT: 387 QTc: 410 Interpretive Statements SINUS RHYTHM BORDERLINE LEFTWARD AXIS BORDERLINE ECG NO PREVIOUS ECG AVAILABLE FOR COMPARISON Electronically Signed On 08-22-2023 19:19:34 ANIMAL CYTOLOGIST by Jacob Devine M.D.
--- NOTE | 2023-08-22 15:34 | PC.NURSE ---
Patient reports that he does drink alcohol every day and that he has not had a drink since yesterday. Patient is alert x3 at time of triage.
[2023-08-22 16:03] LABS: Basophils Absolute Auto 0.1 K/mm3 (0.0-0.1); Basophils Percent Auto 0.9 % (0.2-1.2); Eosinophils Absolute Auto 0.1 K/mm3 (0-0.3); Eosinophils Percent Auto 1.2 % (0-4.4); Hematocrit 42.2 % (42.0-52.0); Hemoglobin 14.1 g/dL (14.0-18.0); Immature Granulocyte Absolute 0.02 K/mm3 (0.00-0.031); Immature Granulocyte Percent A 0.3 % (0-0.5); Lymphocytes Absolute Auto 0.74 K/mm3 (0.9-3.2); Lymphocytes Percent Auto 10.7 % (18.3-44.2); Mean Corpuscular HGB Conc 33.4 g/dl (32-36); Mean Corpuscular Hemoglobin 31.5 pg (26-34); Mean Corpuscular Volume 94.2 fl (80-100); Mean Platelet Volume 9.4 fl (7.4-10.4); Monocytes Absolute Auto 0.5 K/mm3 (0.1-0.6); Monocytes Percent Auto 6.8 % (2.6-8.5); Neutrophils Absolute Auto 5.6 K/mm3 (1.3-6.7); Neutrophils Percent Auto 80.1 % (45.5-73.1); Platelet Count Result 234 k/mm3 (150-375); Red Blood Count 4.48 M/mm3 (4.6-6.20); Red Cell Distribution Width 12.4 % (11.5-14.5); White Blood Count 6.9 K/mm3 (4.5-10.0)
[2023-08-22 16:15] LABS: Partial Thromboplastin Time 25.6 SECONDS (22.3-36.8); Prothrombin Time 13.6 Seconds (11.1-14.7)
[2023-08-22 16:19] LABS: Alanine Aminotransferase 48 U/L (6-50); Albumin Level 4.6 g/dL (3.5-5.1); Alkaline Phosphatase 71 U/L (38-126); Anion Gap 10 mmol/L (8-16); Aspartate Amino Transferase 55 U/L (17-59); Bilirubin,Total 0.9 mg/dL (0.2-1.3); Blood Urea Nitrogen 12 mg/dL (9-20); Calcium 9.4 mg/dL (8.4-10.2); Carbon Dioxide 29 mmol/L (22-30); Chloride 95 mmol/L (98-107); Estimated CRCL calculation 91 ml/min; Estimated Glomerular Filt Rate > 60; Glucose 165 mg/dL (65-110); Lipase 70 U/L (23-300); Potassium 3.9 mmol/L (3.4-5.0); Sodium 134 mmol/L (137-145)
[2023-08-22 16:29] LABS: Troponin I < 0.012 ng/mL (0.000-0.034)
--- NOTE | 2023-08-22 18:57 | ECG_ITS ---
Measurements Intervals [place] Rate: 63 P: 47 OK: 150 QRS: -9 QRSD: 102 T: 43 QT: 414 QTc: 427 Interpretive Statements SINUS RHYTHM BORDERLINE LEFTWARD AXIS BORDERLINE ECG COMPARED TO ECG 08/22/2023 15:35:41 NO SIGNIFICANT CHANGES Electronically Signed On 08-22-2023 19:24:24 [employer]ODY [employer] by Jacob Devine M.D.
[2023-08-22 19:05] VITALS: BP 156/83; PULSE 62; O2SAT 98
[2023-08-22 19:38] LABS: Troponin I < 0.012 ng/mL (0.000-0.034)
--- NOTE | 2023-08-22 20:55 | ED.GENADULT ---
HPI - General Adult General Chief complaint: Dizziness Stated complaint: dizzy/anxiety/out of blood pressure meds Time Seen by Provider: 08/22/23 20:16 History of Present Illness HPI narrative: 53-year-old male presenting to the emergency department for evaluation of substernal chest pain. patient reports this morning at about 1:00 a.m. he was having increased blood pressure and He realized he had not taken his lisinopril. patient states that approximately 4 5:00 p.m. he had onset chest pain that radiated to his jaw. Patient admits he was highly anxious and does have a lot stress on going in his life right now. patient states he suspects he might have had a panic attack at that time. Patient does has history hypertension, high cholesterol and does report a significant alcohol history. Patient states he has no prior history of SC but did have a stress test in a few years ago. Patient was treated with aspirin and nitro by EMS. Upon arrival to the emergency department and at time of examination patient denies any anxiety, chest pain or shortness of breath. Related Data Allergies Allergy/AdvReac Type Severity Reaction Status Date / Time No Known Allergies Allergy Verified 08/22/23 15:30 [facility] Past Medical History Medical History Anxiety and depression Asthma Blood in stool Body mass index (bmi) 31.0-31.9, adult Chronic fatigue Class 1 obesity without serious comorbidity with body mass index (BMI) of 30.0 to 30.9 in adult Depression Essential hypertension Gastroesophageal reflux disease Hyperlipidemia Hypertension Hypogonadism in male Low testosterone SHAYNA (obstructive sleep apnea) Surgical History Surgical History H/O shoulder surgery left Family History Family History Father Family history of cardiovascular disease Sibling Family history of cardiovascular disease Sibling Cancer Social History Social History Smoking status: Former smoker Tobacco type: cigars Alcohol intake: current Drinks per week: 10 Alcohol use details: Pt drinks socially. Substance use: never Substance use type: does not use Lack of Transportation: No Lack of Food: Never True Current Housing: I Have Housing Concerned About Future Housing: No Difficulty Paying Gas/Electric Bills: No Difficulty Paying for Meds: No Currently Unemployed: No Education: Bachelor's Degree Difficulty w/ Childcare or Family Care: No Living arrangements: with family Spiritual care concerns: No Exam Narrative: APPEARANCE: Well appearing, no pain, no distress, well-nourished. HEAD: normocephalic, atraumatic. EYES: PERRLA/EOMI, conjunctivae clear. NOSE: Normal no drainage EARS:TMS clear with good light reflex. THROAT: Pharynx clear, no exudate. NECK: Supple. No adenopathy, no masses. RESPIRATORY: Airway patent, respirations nonlabored. Clear to auscultation bilaterally, no rales, rhonchi, wheezing. CARDIOVASCULAR: Regular rate and rhythm without murmurs rubs or gallops. ABDOMINAL: Soft, nontender, nondistended, normal bowel sounds MUSCULOSKELETAL: Moves all extremities. Strength/ROM intact, No edema, No calf tenderness. NEURO: Alert. Cranial nerves II through XII intact. Good gait. Good coordination SKIN: Warm, dry. Normal Color PSYCHIATRIC: Normal affect/mood. Course Course Emergency Course: 53-year-old male presenting ED for evaluation of chest pain. Patient is afebrile with no leukocytosis and a stable hemoglobin. Patient had negative serial troponins and EKGs, chest x-ray showed no acute cardiopulmonary abnormality. Due to the patient's concerning symptoms I discussed the case with the hospitalist and patient was accepted for admission for further cardiac evaluation. patient and family are co
--- NOTE | 2023-08-22 21:02 | PM.IMHP ---
H&P: HPI History of Present Illness Date/Time: 08/22/23 21:02 Chief Complaint: chest pain Narrative: This is a 53-year-old male with past medical history significant for asthma, back pain, obstructive sleep apnea, alcohol abuse. Patient presents to the emergency room after episode of chest pain accompanied by nausea vomiting pressure-like like someone sitting on his chest radiated to his left arm had numbing sensation as well EMS got cold patient received aspirin and nitro EN route. Patient has been his usual state of health up until this point. Denies any fevers, rigors, chills, cough, sputum production patient drinks 4-5 drinks a day he had beer and Tequila prior to this episode. Preliminary workup has been essentially nonrevealing. Patient is being placed in observation for further evaluation management and treatment. EXAMINATION:? XR chest 2V Exam Date/Time:? 08/22/2023 15:56 SALES SERVICE REPRESENTATIVE HISTORY: chest pressure, dizzy, HTN, ASTHMA, LT ARM NUMBNESS, CP ? Comparison:? 07/04/2020. RESULT: Lines, tubes, and devices:? None. Lungs and pleura:? Clear. Cardiomediastinal silhouette:? Stable. Other:? No acute osseous or upper abdominal finding. Bilateral distal clavicular osteolysis. ? IMPRESSION: No acute cardiopulmonary process. Review of Systems Review of Systems: chest pain Constitutional: Constitutional: Denies chills, Denies fatigue, Denies fever(s), Denies malaise, Denies night sweats and Denies weakness Eyes: Eyes: Denies change in vision ENT: Denies dysphagia and Denies odynophagia Cardiovascular: Cardiovascular: Reports chest pain, Denies lightheadedness, Reports radiating jaw, neck or arm pain and Denies palpitations Respiratory: Respiratory: Reports dyspnea and Reports wheezing Gastrointestinal: Gastrointestinal: Denies abdominal pain, Denies dyspepsia, Denies diarrhea, Reports nausea and Reports vomiting Genitourinary: Genitourinary: Denies dysuria Musculoskeletal: Musculoskeletal: Reports back pain Integumentary/Breasts: Skin/Breast: Denies rash Neurologic: Denies focal weakness and Denies Sensory deficit (Neuro) Psychiatric: Psychiatric: Reports no additional psychiatric complaints and Reports as per HPI Endocrine: Endocrine: Denies cold intolerance, Denies flushing, Denies heat intolerance, Denies polyphagia, Denies polydipsia and Denies palpitations Hematologic/Lymphatic: Hematologic/Lymphatic: Reports no additional hematologic/lymphatic complaints and Reports as per HPI Allergic/Immunologic: Allergic/Immunologic: Reports no additional allergic/immunologic complaints and Reports as per HPI [facility] Past Medical History Medical History Anxiety and depression Asthma Blood in stool Body mass index (bmi) 31.0-31.9, adult Chronic fatigue Class 1 obesity without serious comorbidity with body mass index (BMI) of 30.0 to 30.9 in adult Depression Essential hypertension Gastroesophageal reflux disease Hyperlipidemia Hypertension Hypogonadism in male Low testosterone SHAYNA (obstructive sleep apnea) Surgical History Surgical History H/O shoulder surgery left Family History Family History Father Family history of cardiovascular disease Sibling Family history of cardiovascular disease Sibling Cancer Social History Social History Years smoked: 5 Smoking status: Former smoker Tobacco type: cigars Alcohol intake: current Drinks per week: 20 Alcohol use details: Pt drinks socially. Substance use: never Substance use type: marijuana Other substance usage details: edibles - once a month Do You Feel Safe in your Home?: Yes Lack of Transportation: No Lack of Food: Never True Current Housing: I Have Housing Concerned About Future Housing: No
[2023-08-22 22:01] LABS: Troponin I < 0.012 ng/mL (0.000-0.034)
[2023-08-22] MEDS: ACETAMINOPHEN 500 MG TABLET 1000 MG PO (22:09)
[2023-08-22 22:15] VITALS: BP 134/88; PULSE 69; RESP 14; O2SAT 100
[2023-08-22 23:00] VITALS: PULSE 84; RESP 16; O2SAT 98
[2023-08-22 23:15] VITALS: PULSE 79; RESP 19; O2SAT 97
--- NOTE | 2023-08-22 23:50 | PC.NURSE ---
this rn assumed care of patient. this rn took patient report from MIGUEL Vences.
[2023-08-23] VITALS (58 sets, daily range): BP systolic 118–175; BP diastolic 63–96; PULSE 60–99; RESP 12–29; TEMP 36.2–36.8; O2SAT 94–100; BMI 28.3
--- NOTE | 2023-08-23 | EST_ITS ---
Patient Info Name: Peña Anderson Age: 53 years : 1970 Gender: Male Ht: 69 in Wt: 194 lbs BSA: 2.09 m2 Exam Date: 08/24/2023 11:52 AM Exam Location: Echo Lab Patient Status: Inpatient Admit Date: 08/23/2023 Staff Ordering Physician: Esau Hand APRN Attending Provider: Yuri Grissom MD Exercise Technologist: Veronika Price RDCS Nurse: Tess Valdez APN Exercise Physician: Lemuel Chang MD Exam Type: CA stress manish w NM Study Info Indications R07.9 - Chest pain, unspecified A regadenoson stress test was performed. Summary 1. No abnormal ST/T wave changes with Lexiscan. 2. No arrhythmias were observed during the examination. 3. No chest discomfort with stress test. 4. Please correlate with nuclear medicine images, reported separately. Protocol: Lexiscan Stress ECG Details Stage: REST Duration (min): 0 min : 36 sec HR (bpm): 72 SBP (mmHg): 135 DBP (mmHg): 92 Stage: REST Duration (min): 28 min : 40 sec HR (bpm): 69 SBP (mmHg): 135 DBP (mmHg): 92 Stage: STAGE 1 Duration (min): 0 min : 59 sec HR (bpm): 92 SBP (mmHg): 150 DBP (mmHg): 96 Stage: RECOVERY Duration (min): 1 min : 0 sec HR (bpm): 97 SBP (mmHg): 158 DBP (mmHg): 96 Stage: RECOVERY Duration (min): 2 min : 0 sec HR (bpm): 88 SBP (mmHg): 158 DBP (mmHg): 96 Stage: RECOVERY Duration (min): 3 min : 0 sec HR (bpm): 83 SBP (mmHg): 136 DBP (mmHg): 87 Stage: RECOVERY Duration (min): 3 min : 3 sec HR (bpm): 84 SBP (mmHg): 136 DBP (mmHg): 87 Rest HR: 69 bpm Peak HR: 99 bpm Rest Sys BP: 135 mmHg Peak Sys BP: 158 mmHg Max Pred HR: 165 bpm % Max Pred HR: 60 % Target HR: 140 bpm Max RPP: 15,642 bpm*mmHg Total Time: 1 min : 0 sec Rest Bradley BP: 92 mmHg Peak Bradley BP: 96 mmHg Total Dose: 0.4 mg Resting ECG Normal sinus rhythm - normal ECG. Stress ECG No abnormal ST/T wave changes with Lexiscan. Arrhythmias No arrhythmias were observed during the examination. Report Signatures
--- NOTE | 2023-08-23 03:40 | PC.NURSE ---
Patient calls a nurse into room, this nurse speaks with patient. Patient states he is having neck pain again and is also requesting an inhaler or a treatment for his asthma. Patient states he occasionally uses an inhaler or neb treatment at home for his asthma. Hospitalist paged and notified of patients request, verbal orders received.
[2023-08-23] MEDS: ACETAMINOPHEN 500 MG TABLET 1000 MG PO ×2 (04:04→18:20)
[2023-08-23] MEDS: IPRATROPIUM 0.5 MG/ALBUTEROL SULFATE 2.5 MG AMPUL.NEB 3 ML INHALATION (04:05)
--- NOTE | 2023-08-23 11:55 | PC.NURSE ---
ordered heart healthy lunch meal tray for pt
--- NOTE | 2023-08-23 13:00 | PM.IMPN ---
Progress Note: A&P Assessment and Plan (1) Chest pain: Code(s): R07.9 - Chest pain, unspecified Status: Acute Assessment and Plan: placed in observation chest pain-free cardiology consult Troponin x3 negative 08/23: Ordered echocardiogram with bubble study and Lexiscan (2) Dizziness: Code(s): R42 - Dizziness and giddiness Status: Acute Assessment and Plan: 08/23: Patient reports episodic dizziness that accompanied chest pain. He also reports history carotid plaque. He is on low-dose atorvastatin. Ordered lipid panel for the morning. Ordered CTA head neck. Ordered echocardiogram with bubble study. No focal neuro deficit at this time but he does have recurrent episodic dizziness, possibly anxiety related. (3) Asthma: Qualifiers: Asthma severity: unspecified severity Asthma persistence: unspecified Asthma complication type: unspecified Qualified Code(s): J45.909 - Unspecified asthma, uncomplicated Code(s): J45.909 - Unspecified asthma, uncomplicated Status: Acute Assessment and Plan: breathing treatments/albuterol inhaler p.r.n., no active wheezing or acute exacerbation no need for steroids at this time (4) SHAYNA (obstructive sleep apnea): Code(s): G47.33 - Obstructive sleep apnea (adult) (pediatric) Status: Acute Assessment and Plan: CPAP at nighttime (5) Lumbar radiculopathy: Code(s): M54.16 - Radiculopathy, lumbar region Status: Acute Assessment and Plan: Tylenol p.r.n. (6) ETOH abuse: Code(s): F10.10 - Alcohol abuse, uncomplicated Status: Acute Assessment and Plan: follow-up in outpatient setting 08/23: Reports daily alcohol use without using for the last 5 days. No prior alcohol withdrawal. Patient is exhibiting anxiety and hypertension but florid withdrawal does not appear to be eminent. Time Spent With Patient Time with patient: 25 - 35 minutes Subjective Date/time seen: 08/23/23 16:00 Interval history: This is a 53-year-old male patient past history of hypertension regular alcohol use anxiety and depression who is being admitted to the hospital for chest pain that he describes as somebody standing his chest. This resolved with nitroglycerin given by EMS. Patient has not recurrence chest pain. He is concerned his blood pressure rising and it has been several days since he is taking his medication. Patient also complained of dizziness. He reports that a dentist did an ultrasound of his carotid in showed some plaque and he was supposed to with his primary care provider. Patient denies any weakness altered sensation on either side body motor dysfunction trouble or any concerning symptoms he denies shortness of breath but has noted to be a bit tachypneic throughout the day. He did receive an albuterol treatment earlier in his visit because he was completed shortness of breath at time. He also requested for an albuterol inhaler when he had a subsequent episode of dizziness which resolved after he used the inhaler. Patient is admitted pending echocardiogram Lexiscan and Cardiology consult. Home medications restarted. Review of Systems Review of Systems: All systems reviewed & are unremarkable except as noted in HPI and below Exam Narrative: GENERAL: Well-appearing, well-nourished, mildly anxious appearing HEAD: Normocephalic, atraumatic. ENT:? Mucous membranes moist. CHEST: Clear to auscultation.? No respiratory distress. Tachypnea reported in vital signs but not evident upon my evaluation HEART: Regular rate and rhythm. ? Normal peripheral pulses. Sinus rhythm rate of 78 on bedside telemetry monitoring per my own assessment ABDOMEN: Soft, nontender, nondistended. EXTREMITIES: Normal range of motion. No peripheral edema. SKIN: Warm dry normal color NEURO: Alert and oriented x3. PSYCH: Normal mood and mildly anxious affect Objective Data Vital Signs Vital Si
[2023-08-23] MEDS: ALBUTEROL SULFATE (*SP) AEROSOL 1 PUFF 2 PUFF INHALATION (15:24)
--- NOTE | 2023-08-23 15:56 | ECG_ITS ---
Measurements Intervals [place] Rate: 78 P: 55 MO: 139 QRS: -16 QRSD: 105 T: 34 QT: 403 QTc: 459 Interpretive Statements SINUS RHYTHM BASELINE ARTIFACT COMPARED TO ECG 08/22/2023 19:03:17 NO SIGNIFICANT CHANGES Electronically Signed On 08-24-2023 18:19:00 MERCURY RECOVERER by Lemuel Chang M.D.
[2023-08-23] MEDS: ASPIRIN 81 MG ENTERIC TABLET PO (16:20)
[2023-08-23] MEDS: SERTRALINE HCL 50 MG TABLET 150 MG PO (17:38)
--- NOTE | 2023-08-23 18:02 | ADMGEN ---
This patient, Peña Anderson, was admitted to [facility]. Patient/family oriented to hospital policies and general routines including ID bracelet, bed and alarms, visiting hours, pain management, procedures, bathroom and other care routines, personal items, smoking policy, room service/diet, and visiting hours. Information on how to activate the Rapid Response Team has been discussed. Patient/Family are encouraged to report perceived risks to care and to ask questions if they do not understand what they are told or what they should do.
[2023-08-24] VITALS (11 sets, daily range): BP systolic 131–151; BP diastolic 75–93; PULSE 47–82; RESP 16–18; TEMP 36.3–37.2; O2SAT 98–99
--- NOTE | 2023-08-24 | ECHO_ITS ---
Patient Info Name: Peña Anderson Age: 53 years : 1970 Gender: Male Ht: 69 in Wt: 194 lbs BSA: 2.09 m2 HR: 72 bpm BP: 140 / 86 mmHg Heart Rhythm: Sinus Rhythm Technical Quality: Fair Exam Date: 08/24/2023 2:35 PM Exam Location: Echo Lab Patient Status: Outpatient Admit Date: 08/23/2023 Staff Ordering Physician: Esau Hand APRN Mapping Editor: Jasmina Silva RDCS Attending Provider: Yuri Grissom MD Referring Physician: Yazan RODGERS; Exam Type: CA echo doppler w bubble study Study Info Indications R07.9 - Chest pain, unspecified - DIZZINESS Complete two-dimensional, color flow and Doppler transthoracic echocardiogram is performed with agitated saline. Contrast/Agitated Saline Contrast/Ag. Saline: Agitated Saline Amount: 20.00 ml Existing IV Access: Yes IV Access Condition: patent with no signs of infiltration Summary 1. Technically difficult study with limited views. 2. No [id number] shunt with injection of agitated saline with and without Valsalva. 3. Left ventricular chamber dimension is normal. 4. Left ventricular systolic function is normal, estimated at 65-70%. 5. There is no increased left ventricular wall thickness. 6. The left ventricular diastolic function is grade I diastolic dysfunction. 7. There is trace mitral valve regurgitation. 8. The mitral valve annulus is moderately calcified. 9. There is trace tricuspid valve regurgitation. 10. No pulmonary hypertension, estimated pulmonary arterial systolic pressure is 28 mmHg. Left Ventricle Technically difficult study with limited views. Left ventricular chamber dimension is normal. Left ventricular systolic function is normal, estimated at 65-70%. There is no increased left ventricular wall thickness. The left ventricular diastolic function is grade I diastolic dysfunction. Right Ventricle Right ventricular chamber dimension is normal. Right ventricular systolic function is normal. Left Atria Left atrial chamber dimension is normal. Right Atria Right atrial chamber dimension is mildly enlarged. Atrial Septum No [id number] shunt with injection of agitated saline with and without Valsalva. Aortic Valve The aortic valve is not well visualized. There is no aortic valve stenosis. There is no aortic valve regurgitation. Pulmonic Valve The pulmonic valve is not well visualized. Mitral Valve The mitral valve has thickened leaflets. There is trace mitral valve regurgitation. The mitral valve annulus is moderately calcified. Tricuspid Valve The tricuspid valve leaflets are normal. There is trace tricuspid valve regurgitation. No pulmonary hypertension, estimated pulmonary arterial systolic pressure is 28 mmHg. Pericardium/Pleural The pericardium appears normal. There is trivial pericardial effusion. Inferior Vena Cava Normal inferior vena cava with >50% collapse upon inspiration consistent with normal right atrial pressure, 5 mmHg. Aorta The aortic root size at the sinus of Valsalva is normal. Left Ventricular Outflow Tract Name Value Normal LVOT 2D LVOT Diameter 1.9 cm LVOT Doppler LVOT Peak Gradient 5 mmHg
[2023-08-24 04:41] LABS: Basophils Percent Auto 0.5 % (0.2-1.2); Eosinophils Absolute Auto 0.6 K/mm3 (0-0.3); Eosinophils Percent Auto 9.6 % (0-4.4); Hematocrit 39.1 % (42.0-52.0); Hemoglobin 13.3 g/dL (14.0-18.0); Immature Granulocyte Absolute 0.02 K/mm3 (0.00-0.031); Immature Granulocyte Percent A 0.3 % (0-0.5); Lymphocytes Absolute Auto 0.98 K/mm3 (0.9-3.2); Lymphocytes Percent Auto 16.8 % (18.3-44.2); Mean Corpuscular Hemoglobin 31.9 pg (26-34); Mean Corpuscular Volume 93.8 fl (80-100); Mean Platelet Volume 9.6 fl (7.4-10.4); Monocytes Absolute Auto 0.5 K/mm3 (0.1-0.6); Monocytes Percent Auto 8.4 % (2.6-8.5); Neutrophils Absolute Auto 3.7 K/mm3 (1.3-6.7); Neutrophils Percent Auto 64.4 % (45.5-73.1); Platelet Count Result 170 k/mm3 (150-375); Red Blood Count 4.17 M/mm3 (4.6-6.20); Red Cell Distribution Width 12.2 % (11.5-14.5); White Blood Count 5.8 K/mm3 (4.5-10.0)
[2023-08-24 04:55] LABS: Alanine Aminotransferase 41 U/L (6-50); Albumin Level 3.9 g/dL (3.5-5.1); Alkaline Phosphatase 57 U/L (38-126); Anion Gap 6 mmol/L (8-16); Aspartate Amino Transferase 42 U/L (17-59); Bilirubin,Total 0.7 mg/dL (0.2-1.3); Blood Urea Nitrogen 15 mg/dL (9-20); Carbon Dioxide 32 mmol/L (22-30); Chloride 98 mmol/L (98-107); Cholesterol 263 mg/dL (0-200); Estimated CRCL calculation 91 ml/min; Estimated Glomerular Filt Rate > 60; Glucose 111 mg/dL (65-110); HDL Direct 65 mg/dL; Magnesium 1.9 mg/dL (1.6-2.3); Potassium 3.2 mmol/L (3.4-5.0); Sodium 136 mmol/L (137-145); Triglycerides 143 mg/dL (<150)
[2023-08-24 05:06] LABS: LDL Cholesterol Direct 156 mg/dL
[2023-08-24] MEDS: ROSUVASTATIN 20 MG TABLET 40 MG PO (09:04)
[2023-08-24] MEDS: lisinopriL 20 MG TABLET 40 MG PO (09:04)
[2023-08-24] MEDS: SERTRALINE HCL 50 MG TABLET 150 MG PO (09:04)
[2023-08-24] MEDS: ASPIRIN 81 MG ENTERIC TABLET PO (09:04)
[2023-08-24] MEDS: POTASSIUM CHLORIDE 20 MEQ ER TABLET 40 MEQ PO (09:04)
--- NOTE | 2023-08-24 10:29 | PM.IMPN ---
Subjective Date/time seen: 08/24/23 10:29 Objective Data Vital Signs Vital Signs: Vital Signs - 24 hr 08/23/23 10:30 08/23/23 10:45 08/23/23 11:00 Temperature Pulse Rate 63 61 Respiratory Rate 14 15 Blood Pressure Pulse Oximetry 97 98 98 Oxygen Delivery 08/23/23 11:18 08/23/23 12:08 08/23/23 12:15 Temperature Pulse Rate 67 65 61 Respiratory Rate 15 15 17 Blood Pressure Pulse Oximetry 98 100 Oxygen Delivery 08/23/23 12:36 08/23/23 12:45 08/23/23 13:07 Temperature Pulse Rate 60 87 85 Respiratory Rate 17 22 H 18 Blood Pressure Pulse Oximetry 99 96 Oxygen Delivery 08/23/23 13:30 08/23/23 13:55 08/23/23 14:01 Temperature Pulse Rate 82 91 99 Respiratory Rate 18 25 H 29 H Blood Pressure 150/89 H Pulse Oximetry 97 99 98 Oxygen Delivery 08/23/23 14:13 08/23/23 15:24 08/23/23 15:28 Temperature 36.8 C Pulse Rate 89 Respiratory Rate 20 Blood Pressure Pulse Oximetry 98 Oxygen Delivery Room Air 08/23/23 17:25 08/23/23 14:02 08/23/23 14:19 Temperature Pulse Rate 80 93 Respiratory Rate 13 28 H Blood Pressure 137/89 Pulse Oximetry 96 98 Oxygen Delivery 08/23/23 14:33 08/23/23 14:45 08/23/23 15:01 Temperature Pulse Rate 74 86 90 Respiratory Rate 20 17 22 H Blood Pressure Pulse Oximetry 97 97 98 Oxygen Delivery 08/23/23 15:15 08/23/23 15:30 08/23/23 15:45 Temperature Pulse Rate 78 79 86 Respiratory Rate 16 18 19 Blood Pressure Pulse Oximetry 98 96 98 Oxygen Delivery 08/23/23 16:15 08/23/23 16:34 08/23/23 16:45 Temperature Pulse Rate 76 81 79 Respiratory Rate 17 27 H 14 Blood Pressure Pulse Oximetry 99 97 98 Oxygen Delivery 08/23/23 17:09 08/23/23 18:07 08/23/23 18:00 Temperature 36.2 C L Pulse Rate 96 85 79 Respiratory Rate 22 H 20 Blood Pressure 118/88 Pulse Oximetry 98 96 Oxygen Delivery 08/23/23 20:29 08/23/23 23:50 08/23/23 20:00 Temperature 36.3 C L 36.3 C L Pulse Rate 75 63 61 Respiratory Rate 18 18 Blood Pressure 151/78 H 143/88 H Pulse Oximetry 99 99 Oxygen Delivery 08/23/23 22:00 08/24/23 00:00 08/24/23 02:00 Temperature Pulse Rate 60 48 L 52 L Respiratory Rate Blood Pressure Pulse Oximetry Oxygen Delivery 08/24/23 04:00 08/24/23 04:49 08/24/23 06:00 Temperature 36.3 C L Pulse Rate 47 L 69 52 L Respiratory Rate 18 Blood Pressure 140/86 Pulse Oximetry 99 Oxygen Delivery 08/24/23 07:43 08/24/23 08:00 08/24/23 10:00 Temperature 36.6 C Pulse Rate 64 62 73 Respiratory Rate 16 Blood Pressure 151/93 H Pulse Oximetry 98 Oxygen Delivery Intake/Output Intake/Output: Intake & Output 08/21/23 08/22/23 08/23/23 08/24/23 23:59 23:59 23:59 23:59 Intake Total 450 Output Total 600 Balance -150 Meds/Results Medications: Active Medications Generic Name Dose Route Start Last Admin Trade Name Freq PRN Reason Stop Dose Admin Acetaminophen 1,000 mg 08/23/23 15:29 08/23/23 18:20 Acetaminophen 500 Mg Tablet PO 1,000 mg Q6H PRN Administration Mild Pain (1-3) or Fever Albuterol 2 puff 08/23/23 14:07 08/23/23 15:24 Albuterol Sulfate (*Sp) Aerosol 1 Puff INHALATION 2 puff Q6HRT PRN Administration Shortness Of Breath Aspirin 81 mg 08/23/23 14:10 08/24/23 09:04 Aspirin 81 Mg Enteric Tablet PO 81 mg QAM LOLLY Administration Lisinopril 40 mg 08/24/23 09:00 08/24/23 09:04 Lisinopril 20 Mg Tablet PO 40 mg DAILY LOLLY Administration Perflutren Lipid Microsphere 0 ml 08/23/23 15:30 Perflutren Lipid Microspheres 1.5 Ml Vial Diluted To 10 Ml Total Volume IV PUSH 08/26/23 15:30 ONCE PRN adequate visualization Protocol Perflutren Lipid Microsphere 0 ml 08/23/23 16:40 Perflutren Lipid Microspheres 1.5 Ml Vial Diluted To 10 Ml Total Volume IV PUSH 08/26/23 16:40 ONCE PRN adequate visualization
--- NOTE | 2023-08-24 14:11 | PM.CNCAR ---
Assessment and Plan Assessment and plan (1) Chest pain: Code(s): R07.9 - Chest pain, unspecified Status: Acute Assessment and Plan: Patient reports intermittent episodes chest pain described as a pressure-like sensation with heightened anxiety but not upon with activity. Prior to admission more severe chest pain which radiated to the left arm shoulder associated nausea has some was sitting on his chest summoned EMS. He received aspirin and some nitroglycerin. Chest pain persisted gradually resolving release in our half as he describes. Serial troponins negative, he has ruled out for myocardial infarction. Twelve lead ECG without acute ischemic changes otherwise unremarkable. Patient has no prior known history of CAD. His currently pain-free although has some acid reflux symptoms after taking his pills this morning. He denies recent illnesses, fevers, chills, hemoptysis. He has a history of red blood in his stool non recently but describes diagnosis of polyps in the past. Reports drinking 4-5 alcoholic drinks daily and prior to this presentation. Patient has been kept NPO in anticipation for stress testing. Patient states he feels much better at this time denies ambulatory shortness of breath, dizziness or palpitations. He has maintained sinus rhythm on telemetry. Patient reports family history of premature atherosclerosis with father having myocardial infarction age 49. Continue aggressive risk modification with aspirin 81 mg daily as tolerated and receives at 40 mg daily. Lexiscan stress test pending. Further recommendations to follow. Patient's risk factors given history of tobacco use, family history premature atherosclerosis, hypertension, and hyperlipidemia. If significant ischemia LV dysfunction and a larger prior infarction we discussed invasive angiography risk versus benefit as detailed. Continue telemetry. DVT prophylaxis. (2) Anxiety: Code(s): F41.9 - Anxiety disorder, unspecified Status: Acute Assessment and Plan: Patient reports significant social stressors has felt intermittent episodes of chest discomfort and symptoms sound like panic attack. Nitroglycerin does not appear to have significantly reduced his symptoms at presentation as it took well over 1 hour for his chest pain to resolve. Defer management to primary service in this regard. Continue sertraline 150 mg daily. (3) Hypertension: Qualifiers: Hypertension type: essential hypertension Qualified Code(s): I10 - Essential (primary) hypertension Code(s): I10 - Essential (primary) hypertension Status: Acute Assessment and Plan: BP significantly elevated presentation although marginally controlled at this time. Continue lisinopril 40 mg daily for now. (4) Hyperlipidemia: Qualifiers: Hyperlipidemia type: mixed hyperlipidemia Qualified Code(s): E78.2 - Mixed hyperlipidemia Code(s): E78.5 - Hyperlipidemia, unspecified Status: Acute Assessment and Plan: Continue rosuvastatin 40 mg daily. Total cholesterol 263 LDL 156 poorly controlled. Atorvastatin discontinued in favor of rosuvastatin 40 mg daily. (5) ETOH abuse: Code(s): F10.10 - Alcohol abuse, uncomplicated Status: Acute Assessment and Plan: Avoidance of alcohol discussed. Patient also mentions smoking marijuana on occasion. Advised to avoid illicit or recreational substance use. History of Present Illness History of Present Illness Consult date/time: Date of service: 08/24/23 14:11 Reason For Visit: Chest Pain Narrative: Patient is a pleasant 53-year-old gentleman with past medical history significant for hypertension, hyperlipidemia, alcohol abuse, and anxiety who presented with complaints of intermittent episodes chest pain described as a pressure-like sensation with heightened anxiety but not upon with activity. Prior to admission more severe chest pain which radiated to t
--- NOTE | 2023-08-24 14:33 | PM.DS ---
DS: Admitting Diagnosis Discharge Date 08/24/2023 Admitting Diagnosis Chest pain, asthma, SHAYNA, lumbar radiculopathy, EtOH abuse DS: Discharge Diagnosis Discharge Diagnosis (1) Chest pain: Code(s): R07.9 - Chest pain, unspecified Status: Acute (2) Asthma: Qualifiers: Asthma severity: unspecified severity Asthma persistence: unspecified Asthma complication type: unspecified Qualified Code(s): J45.909 - Unspecified asthma, uncomplicated Code(s): J45.909 - Unspecified asthma, uncomplicated Status: Acute (3) SHAYNA (obstructive sleep apnea): Code(s): G47.33 - Obstructive sleep apnea (adult) (pediatric) Status: Acute (4) Lumbar radiculopathy: Code(s): M54.16 - Radiculopathy, lumbar region Status: Acute (5) ETOH abuse: Code(s): F10.10 - Alcohol abuse, uncomplicated Status: Acute DS: Summary Hospital Course Hospital Course: This is a 53-year-old male patient who was admitted for chest pain underwent Lexiscan stress that was negative and a documented a 68% EF. Patient has been chest pain-free since admission. He has a history of asthma has been using his inhaler occasionally. He also has history of hypertension. Cholesterol was noted to be highly elevated he was previously prescribed atorvastatin 10 mg that he admits he does not take routinely. This was changed to rosuvastatin 40 mg due to lipid panel severe elevation. Patient was seen by Cardiology today and has been cleared for discharge. Patient instructed to stop smoking and decrease frequency and amount of alcohol in take. He should follow up with Cardiology after discharge. He will also start aspirin 81 mg daily. Time spent discussing smoking cessation with patient: 3 to 10 minutes Status at Discharge Cognitive/behavioral status at discharge: Awake alert oriented and pleasant Functional status at discharge: independent ambulation Overall status at discharge: patient is progressing back to baseline Time Spent with Patient Time attestation: Total time spent providing and/or coordinating discharge services: 35 minutes Time spent: Greater than 30 minutes Exam Narrative: GENERAL: Well-appearing, well-nourished, mildly anxious appearing HEAD: Normocephalic, atraumatic. ENT:? Mucous membranes moist. CHEST: Clear to auscultation.? No respiratory distress. Tachypnea reported in vital signs but not evident upon my evaluation HEART: Regular rate and rhythm. ? Normal peripheral pulses. Sinus rhythm rate of 78 on bedside telemetry monitoring per my own assessment ABDOMEN: Soft, nontender, nondistended. EXTREMITIES: Normal range of motion. No peripheral edema. SKIN: Warm dry normal color NEURO: Alert and oriented x3. PSYCH: Normal mood and mildly anxious affect DS: Data Data Completed and Pending Completed studies during hospitalization: Lexiscan, CTA head neck, chest x-ray Labs on day of discharge: Labs from last 24 hours 08/24/23 04:12 WBC 5.8 RBC 4.17 L Hgb 13.3 L Hct 39.1 L MCV 93.8 MCH 31.9 MCHC 34.0 RDW 12.2 Plt Count 170 MPV 9.6 Immature Gran % (Auto) 0.3 Neut % (Auto) 64.4 Lymph % (Auto) 16.8 L [place] % (Auto) 8.4 Eos % (Auto) 9.6 H Baso % (Auto) 0.5 Lymph # (Auto) 0.98 [place] # (Auto) 0.5 Eos # (Auto) 0.6 H Baso # (Auto) 0.0 Abs Immat Gran (auto) 0.02 Absolute Neuts (auto) 3.7 Absolute Nucleated RBC 0.0 Nucleated RBC % 0.0 Sodium 136 L Potassium 3.2 L Chloride 98 Carbon Dioxide 32 H Anion Gap 6 L BUN 15 Creatinine 0.80 Estim Creat Clear Calc 91 Estimated GFR > 60 Glucose 111 H Calcium 9.0 Magnesium 1.9 Total Bilirubin 0.7 AST 42 ALT 41 Alkaline Phosphatase 57 Total Protein 7.0 Albumin 3.9 Triglycerides 143 Cholesterol 263 H LDL Cholesterol Direct 156 HDL Direct 65 Discharge Plan Discharge Attending physician on discharge: Alhaji Flores Consulting providers: Tess Valdez
== END 2023-08-24 16:24 | disposition home or self-care (01) ==
LOC: ANHED 20:29 → ANHIMU 21:42
PROVIDERS: Nurse Practitioner; Admitting Provider Internal Medicine; Emergency Provider Emergency Medicine; PCP Nurse Practitioner; Visit Provider Internal Medicine
DX: R07.9 Chest pain, unspecified (principal); F41.8 Other specified anxiety disorders; R42 Dizziness and giddiness; J45.909 Unspecified asthma, uncomplicated; I10 Essential (primary) hypertension; E78.5 Hyperlipidemia, unspecified; G47.33 Obstructive sleep apnea (adult) (pediatric); M54.16 Radiculopathy, lumbar region; K21.9 Gastro-esophageal reflux disease without esophagitis; Z87.891 Personal history of nicotine dependence; F10.10 Alcohol abuse, uncomplicated; F12.90 Cannabis use, unspecified, uncomplicated; Z79.51 Long term (current) use of inhaled steroids
CPT/HCPCS: 36415; 70496; 70498; 71046; 78452; 80053; 80061; 83690; 83735; 84484; 85025; 85610; 85730; 93005; 93017; 93306; 94640; 96375; 99285; A9270; A9502; G0378; J2785; Q9967

== ENCOUNTER 2024-02-24 08:24 | Outpatient (CLI) | payer OTHER, SELFPAY ==
[2024-02-24 13:14] LABS: Basophils Absolute Auto 0.1 K/mm3 (0.0-0.1); Basophils Percent Auto 0.8 % (0.2-1.2); Eosinophils Absolute Auto 0.7 K/mm3 (0-0.3); Eosinophils Percent Auto 6.9 % (0-4.4); Hematocrit 46.5 % (42.0-52.0); Hemoglobin 15.4 g/dL (14.0-18.0); Immature Granulocyte Absolute 0.06 K/mm3 (0.00-0.031); Immature Granulocyte Percent A 0.6 % (0-0.5); Lymphocytes Absolute Auto 1.43 K/mm3 (0.9-3.2); Mean Corpuscular HGB Conc 33.1 g/dl (32-36); Mean Corpuscular Hemoglobin 31.4 pg (26-34); Mean Corpuscular Volume 94.9 fl (80-100); Mean Platelet Volume 10.2 fl (7.4-10.4); Monocytes Percent Auto 9.7 % (2.6-8.5); Platelet Count Result 233 k/mm3 (150-375); Red Cell Distribution Width 12.5 % (11.5-14.5); White Blood Count 10.2 K/mm3 (4.5-10.0)
[2024-02-24 13:33] LABS: Alanine Aminotransferase 29 U/L (6-50); Albumin Level 4.5 g/dL (3.5-5.1); Alkaline Phosphatase 59 U/L (38-126); Anion Gap 13 mmol/L (4-12); Aspartate Amino Transferase 57 U/L (17-59); Bilirubin,Total 0.3 mg/dL (0.2-1.3); Blood Urea Nitrogen 43 mg/dL (9-20); Calcium 9.4 mg/dL (8.4-10.2); Carbon Dioxide 24 mmol/L (22-30); Chloride 98 mmol/L (98-107); Cholesterol 196 mg/dL (0-200); Estimated Glomerular Filt Rate 45; Glucose 92 mg/dL (65-110); HDL Direct 49 mg/dL; Potassium 4.4 mmol/L (3.4-5.0); Sodium 135 mmol/L (137-145); Triglycerides 171 mg/dL (<150)
[2024-02-24 13:44] LABS: LDL Cholesterol Direct 104 mg/dL
[2024-02-24 14:02] LABS: Prostate Specific Antigen 1.2 ng/mL (< OR = 4.0)
== END 2024-02-24 08:25 | disposition home or self-care (01) ==
LOC: ANHGOSHLAB 08:26
PROVIDERS: PCP Nurse Practitioner; Visit Provider Nurse Practitioner
DX: E78.5 Hyperlipidemia, unspecified (principal); D64.9 Anemia, unspecified; I10 Essential (primary) hypertension; Z12.5 Encounter for screening for malignant neoplasm of prostate
CPT/HCPCS: 36415; 80053; 80061; 84153; 85025; G0103

== ENCOUNTER 2024-12-16 10:23 | Outpatient (CLI) | payer OTHER, SELFPAY ==
[2024-12-16 12:24] LABS: Basophils Absolute Auto 0.1 K/mm3 (0.0-0.1); Basophils Percent Auto 0.7 % (0.2-1.2); Eosinophils Absolute Auto 0.5 K/mm3 (0-0.3); Eosinophils Percent Auto 5.9 % (0-4.4); Hematocrit 40.8 % (42.0-52.0); Hemoglobin 13.5 g/dL (14.0-18.0); Immature Granulocyte Absolute 0.04 K/mm3 (0.00-0.031); Immature Granulocyte Percent A 0.4 % (0-0.5); Lymphocytes Absolute Auto 1.24 K/mm3 (0.9-3.2); Lymphocytes Percent Auto 13.8 % (18.3-44.2); Mean Corpuscular HGB Conc 33.1 g/dl (32-36); Mean Corpuscular Volume 93.6 fl (80-100); Mean Platelet Volume 9.9 fl (7.4-10.4); Monocytes Absolute Auto 0.7 K/mm3 (0.1-0.6); Monocytes Percent Auto 7.3 % (2.6-8.5); Neutrophils Absolute Auto 6.5 K/mm3 (1.3-6.7); Neutrophils Percent Auto 71.9 % (45.5-73.1); Platelet Count Result 191 k/mm3 (150-375); Red Blood Count 4.36 M/mm3 (4.6-6.20); Red Cell Distribution Width 12.2 % (11.5-14.5)
[2024-12-16 12:33] LABS: Alanine Aminotransferase 21 U/L (6-50); Albumin Level 4.1 g/dL (3.5-5.1); Alkaline Phosphatase 53 U/L (38-126); Anion Gap 6 mmol/L (4-12); Aspartate Amino Transferase 43 U/L (17-59); Bilirubin,Total 0.4 mg/dL (0.2-1.3); Blood Urea Nitrogen 30 mg/dL (9-20); Calcium 9.5 mg/dL (8.4-10.2); Carbon Dioxide 25 mmol/L (22-30); Chloride 105 mmol/L (98-107); Cholesterol 289 mg/dL (0-200); Estimated Glomerular Filt Rate > 60; Glucose 99 mg/dL (65-110); HDL Direct 65 mg/dL; Potassium 4.7 mmol/L (3.4-5.0); Sodium 136 mmol/L (137-145); Total Protein 6.9 g/dL (6.3-8.2); Triglycerides 133 mg/dL (<150)
[2024-12-16 12:45] LABS: LDL Cholesterol Direct 172 mg/dL
[2024-12-16 13:04] LABS: Prostate Specific Antigen 1.2 ng/mL (< OR = 4.0)
== END 2024-12-16 10:24 | disposition home or self-care (01) ==
LOC: ANHGOSHLAB 10:24
PROVIDERS: PCP Internal Medicine; Visit Provider Nurse Practitioner
DX: E78.2 Mixed hyperlipidemia (principal); R73.09 Other abnormal glucose; R94.4 Abnormal results of kidney function studies; Z12.5 Encounter for screening for malignant neoplasm of prostate
CPT/HCPCS: 36415; 80053; 80061; 84153; 85025; G0103

== ENCOUNTER 2025-02-10 16:02 | Emergency (ER) | payer OTHER, SELFPAY ==
[2025-02-10 16:06] VITALS: BP 150/87; PULSE 87; RESP 16; TEMP 37; O2SAT 97
--- NOTE | 2025-02-10 16:27 | ED_ITS ---
HPI - General Adult General Chief complaint: Unspecified Stated complaint: can't keep anything down Time Seen by Provider: 02/10/25 16:27 Source: patient Mode of arrival: ambulatory Limitations: no limitations History of Present Illness HPI narrative: 54 yo M presents with c/o FB to esophagus. Ate steak for dinner last night. States he ate to fast and felt pressure in center of chest. Took his omeprazole and went and laid down. Noticed that his saliva was pooling in his mouth and he couldn't swallow it. Has been spitting into cup since last night. Has attempted to drink water and vomits it back up. When he drinks water the pressure in chest increases. No resp distress. All systems reviewed and negative except as noted above. Related Data Home Medications ?Medication ?Instructions ?Recorded ?Confirmed ?Last Taken ?Type bupropion HCl 150 mg 24 hr tablet, mg PO 02/10/25 Unknown History extended release Allergies Allergy/AdvReac Type Severity Reaction Status Date / Time No Known Allergies Allergy Verified 09/15/24 11:18 [facility] Past Medical History Medical History Blood in stool SHAYNA (obstructive sleep apnea) Hyperlipidemia Depression Chronic fatigue Hypertension Anxiety and depression Asthma Body mass index (bmi) 31.0-31.9, adult Class 1 obesity without serious comorbidity with body mass index (BMI) of 30.0 to 30.9 in adult Essential hypertension Gastroesophageal reflux disease Hypogonadism in male Low testosterone Surgical History Surgical History H/O shoulder surgery left Family History Family History Father Family history of cardiovascular disease Sibling Family history of cardiovascular disease Sibling Cancer Social History Social History Years smoked: 5 Smoking status: Former smoker Tobacco type: cigars Alcohol intake: current Drinks per week: 20 Alcohol use details: Pt drinks socially. Substance use: never Substance use type: marijuana Other substance usage details: edibles - once a month Do You Feel Safe in your Home?: Yes Lack of Transportation: No Lack of Food: Never True Current Housing: I Have Housing Concerned About Future Housing: No Difficulty Paying Gas/Electric Bills: No Difficulty Paying for Meds: No Currently Unemployed: No Education: Don't Know Difficulty w/ Childcare or Family Care: No Living arrangements: with family Spiritual care concerns: No Comments At time of signature, agree with nursing past medical, surgical, social and family history. There is no relevant family history pertinent to the presenting complaint. Exam Narrative: GENERAL: This is a well-nourished, well-developed patient, in no apparent distress. HEAD: normocephalic, atraumatic. EYES: PERRL. Sclera clear/white. Vision is grossly intact. EARS: External ears normal NOSE: External nose normal NECK: Neck supple, non-tender without lymphadenopathy, masses or thyromegaly. CARDIOVASCULAR: Regular rate and rhythm without murmurs, gallops, or rubs. RESPIRATORY: Clear to auscultation. Breath sounds equal bilaterally. No wheezes, rales, or rhonchi. SKIN: warm, Dry, intact with no suspicious lesions or rash, good texture and turgor. NEURO: awake, alert, and oriented to person, place and time. There were no obvious focal neurologic abnormalities. EXTREMITIES: No joint tenderness, effusion, or edema noted. Course Course Level of Care: Express Care Visit Vital Signs Vital signs: Vital Signs Temperature 37.0 C 02/10/25 16:06 Pulse Rate 87 02/10/25 16:06 Respiratory Rate 16 02/10/25 16:06 Blood Pressure 150/87 H 02/10/25 16:06 Pulse Oximetry 97 02/10/25 16:06 Oxygen Delivery Room Air 02/10/25 16:06 Temperature 37.0 C 02/10/25 16:06 Pulse Rate 87 02/10/25 16:06 Respiratory Rate 16 02/10/25 16:06 Blood Pressure 150/87 H 02/10/25 16:06 Pulse Oximetry 97 02/10/25 16:06 Oxygen Delivery Room Air 02/10/25 16:06 Reviewed Transfer Transfered to: [facility] Transportation: Other (private vehicle with spouse) Transfer rationale: FB esophagus Accepting physician: Timothy Hunter NP Medical Decision Making MDM Narrative Medical decision making narrative: pt attempted water at [facility] and vomited within 30 seconds. transferring to ER for further care. pt is alert. no resp distress. Vital Signs Vital Signs: Vital Signs Temperature 37.0 C 02/10/25 16:06 Pulse Rate 87 02/10/25 16:06 Respiratory Rate 16 02/10/25 16:06 Blood Pressure 150/87 H 02/10/25 16:06 Pulse Oximetry 97 02/10/25 16:06 Oxygen Delivery Room Air 02/10/25 16:06 Temperature 37.0 C 02/10/25 16:06 Pulse Rate 87 02/10/25 16:06 Respiratory Rate 16 02/10/25 16:06 Blood Pressure 150/87 H 02/10/25 16:06 Pulse Oximetry 97 02/10/25 16:06 Oxygen Delivery Room Air 02/10/25 16:06 Discharge Plan Discharge Clinical Impression: Esophagus, foreign body Qualifiers: Encounter type: initial encounter Qualified Code(s): T18.108A - Unspecified foreign body in esophagus causing other injury, initial encounter Patient Disposition: Acute Care Hospital Condition: Stable Patient Language: [place] Island[place] Prescriptions: No Action bupropion HCl 150 mg tablet extended release 24 hr PO aspirin 81 mg tablet,delayed release (DR/EC) 81 mg PO QAM Qty: 90 3RF lisinopril 40 mg tablet See Rx Instructions .ROUTE .COMPLEX Qty: 90 3RF Dose Instruction: TAKE 1 TABLET BY MOUTH EVERY DAY Rx Instructions: TAKE 1 TABLET BY MOUTH EVERY DAY naltrexone 50 mg tablet 50 mg PO DAILY Qty: 90 3RF sertraline [Zoloft] 100 mg tablet 200 mg PO DAILY Qty: 180 3RF rosuvastatin 40 mg tablet 40 mg PO DAILY Qty: 90 1RF albuterol sulfate 90 mcg/actuation HFA aerosol inhaler See Rx Instructions .ROUTE .COMPLEX Qty: 6.7 5RF Dose Instruction: USE 2 PUFFS INHALED EVERY 6 HOURS NEEDED FOR SHORTNESS OF BREATH Rx Instructions: USE 2 PUFFS INHALED EVERY 6 HOURS NEEDED FOR SHORTNESS OF BREATH Follow-up/Referrals: Abhay London DO [Primary Care Provider] - Time of Disposition: 16:40
== END 2025-02-10 16:45 | disposition short-term general hospital (02) ==
PROVIDERS: Emergency Provider Nurse Practitioner Family; PCP Internal Medicine
DX: T18.108A Unspecified foreign body in esophagus causing other injury, initial encounter (principal); Z87.891 Personal history of nicotine dependence; I10 Essential (primary) hypertension; E78.5 Hyperlipidemia, unspecified; J45.909 Unspecified asthma, uncomplicated; K21.9 Gastro-esophageal reflux disease without esophagitis; E66.9 Obesity, unspecified; Z68.28 Body mass index [BMI] 28.0-28.9, adult; F41.9 Anxiety disorder, unspecified; F32.A Depression, unspecified
CPT/HCPCS: 99212; G0463